=== PATIENT | female | born 1990 | race Caucasian/White ===

== ENCOUNTER 2023-11-21 20:57 | Emergency (ER) | payer OTHER, SELFPAY ==
[2023-11-21 21:07] VITALS: BP 150/86; PULSE 76; RESP 16; TEMP 36.6; O2SAT 99; BMI 25.1
--- NOTE | 2023-11-21 21:11 | ED_ITS ---
HPI - General Adult General Date Seen: 11/21/23 Chief complaint: Eye Problems Stated complaint: L eye-foreign object from mowing Time Seen by Provider: 11/21/23 21:05 History of Present Illness HPI narrative: This is a pleasant generally healthy 33-year-old female presenting the ER today with her for evaluation of left eye pain, foreign body sensation, and photophobia. She was mowing the grass this evening when she felt something fly into her left eye. Symptoms began since then. She does wear contacts so she took her contact out. She tried to wash out her left eye using some of her saline rinse. Despite irrigating her eye she still has a foreign body sensation. The no other injury to the left eye. No recent redness or swelling of the lids. No chemical splash. No injury to the right eye Related Data Allergies Allergy/AdvReac Type Severity Reaction Status Date / Time neomycin Allergy Mild dermatitis Ver[facility]21[facility]23 [facility] Social History Smoking Status: Never smoker Non-prescribed substance use: denies use Exam Narrative: Exam Narrative: Constitutional: Appears well-developed and well-nourished. Active. Non-toxic appearing. HENT: Head: Atraumatic. No signs of injury. Nose: No nasal discharge. Mouth/Throat: Mucous membranes are moist. Pharynx is normal. Tonsils symmetric. Uvula midline. Airway patent. Eyes: Conjunctivae normal and EOM are normal. Pupils are equal, round, and reactive to light. Right eye exhibits no discharge. Left eye exhibits no discharge. No icterus. Neck: Normal range of motion. Neck supple. No adenopathy. No stridor. Pulmonary/Chest: Effort normal. No stridor. No respiratory distres Musculoskeletal: Normal range of motion. No edema. No tenderness. No deformity. Neurological: Alert. Normal strength. No cranial nerve deficit or sensory deficit. Coordination normal. GCS eye subscore is 4. GCS verbal subscore is 5. GCS motor subscore is 6. Skin: Skin is warm. No rash noted. See nurse's notes for visual acuity PERRLA, EOMI. No exophthalmos or enophthalmos. Conjunctiva without injection or chemosis Slit Lamp Exam: Lids: There is a very tiny punctate black foreign body on the inner surface of the left upper eyelid, removed with a sterile cotton tip applicator. Anterior Chamber: No cells or flare, No hyphema. No hypopyon. Cornea: No foreign body. Fluorescein staining: Multiple very thin vertical E oriented corneal abrasions, likely related to the foreign body that had been attached to the inner surface of her upper eyelid. Const: Vital Signs, click to edit/add: Vital Signs - 24 hr 11/21/23 21:07 Temperature 97.8 F Pulse Rate [Pulse Oximeter] 76 Respiratory Rate 16 Blood Pressure [Ri ght Upper Arm] 150/86 H Pulse Oximetry 99 Oxygen Delivery Me thod Room Air Course Vital Signs Vital signs: Initial Vital Signs Temperature 97.8 F 11/21/23 21:07 Temperature Source Temporal Artery Scan 11/21/23 21:07 Pulse Rate 76 11/21/23 21:07 Pulse Rhythm Regular 11/21/23 21:07 Respiratory Rate 16 11/21/23 21:07 Blood Pressure 150/86 H 11/21/23 21:07 Blood Pressure Mean 107 H 11/21/23 21:07 Blood Pressure Position Sitting 11/21/23 21:07 Pulse Oximetry 99 11/21/23 21:07 Oxygen Delivery Method Room Air 11/21/23 21:07 Vital Signs Temperature 97.8 F 11/21/23 21:07 Pulse Rate 76 11/21/23 21:07 Respiratory Rate 16 11/21/23 21:07 Blood Pressure 150/86 H 11/21/23 21:07 Pulse Oximetry 99 11/21/23 21:07 Oxygen Delivery Method Room Air 11/21/23 21:07 Temperature 97.8 F 11/21/23 21:07 Pulse Rate 76 11/21/23 21:07 Respiratory Rate 16 11/21/23 21:07 Blood Pressure 150/86 H 11/21/23 21:07 Pulse Oximetry 99 11/21/23 21:07 Oxygen Delivery Method Room Air 11/21/23 21:07 Medications Administered Medications: Discontinued Medications Generic Name Dose Route Start Last Admin Trade Name Freq PRN Reason Stop Dose Admin Ciprofloxacin 1 drop 11/22/23 09:00 11/21/23 22:15 Ciprofloxacin 0.3% Ophth EYE-LEFT 11/25/23 08:59 1 drop QID HUGH Administration Medical Decision Making [facility] Narrative Medical decision making narrative: This patient presents with left eye foreign body and left eye eye discomfort, photophobia. Fluorescein exam shows staining consistent with a corneal abrasion with multiple vertical superficial corneal abrasions. There was a very tiny punctate black foreign body under the upper lid which we removed. No known c hemical exposure. No corneal ulcers. I cannot identify any retained contact or corneal foriegn body at this time. No signs of retinal abnormalities, dendritic lesions, open globe, acute glaucoma, or other serious eye disease. No signs of anterior chamber involvement such as endopthalmitis at this point. No sign of bacterial conjunctivitis. PLAN: 1. Topical antibiotics-ciprofloxacin ophthalmic drops because the patient is a contact lens user 2. Pain management with orals meds 3. Close f/u of eye clinic and/or return if worsening symptoms Discharge Plan Discharge Clinical Impression: Corneal abrasion, Acute foreign body of left eyelid Patient Disposition: Home, Self-Care Condition: Stable Instructions: Corneal Abrasion (DC), Eye Foreign Body (ED) Additional Instructions: As we discussed, the foreign body under your left upper eyelid cause a coronal abrasion (actually, a series of scratches on your left cornea). The scratch is should heal over the next 1-2 days. If you have worsening pain, worsening vision, swelling of your eye, pus draining from your eye or any concerns, please come back to the ER right away. Otherwise, please recheck you with your eye doctor within 2-3 days to have a repeat cornea exam to make sure that it is completely healed. You can help her I healing by keeping it closed as much as possible, avoid activities that cause a lot of eye strain and focusing. You can use saline drops to help keep it moisturized. Use the antibiotic drops for the next 3 days to help prevent eye infection. Follow Up/Referrals: Provider,Not a Local [Primary Care Provider] - Stand Alone Forms: MyHealth Info Instructions
[2023-11-21] MEDS: CIPROFLOXACIN 0.3% OPHTH 1 DROP EYE-LEFT (22:15)
== END 2023-11-21 22:36 | disposition home or self-care (01) ==
PROVIDERS: Emergency Provider Emergency Medicine
DX: T15.02XA Foreign body in cornea, left eye, initial encounter (principal); S05.02XA Injury of conjunctiva and corneal abrasion without foreign body, left eye, initial encounter
CPT/HCPCS: 65222; 99282; 99283